=== PATIENT | female | born 1945 | race Caucasian/White ===

== ENCOUNTER 2019-04-21 14:01 | Observation (INO) ==
[2019-04-21] MEDS ORDERED: Aspirin 81 MG TAB.CHEW PO ONE (14:11)
[2019-04-21 14:28] LABS: Basophils % 0.4 %; Eosinophils # 0.1 K/mcL (0.0-0.6); Eosinophils % 1.3 %; Hematocrit 43.7 % (35.3-44.9); Hemoglobin 14.4 g/dL (11.5-15.4); Immature Granulocytes % 0.3 % (0-4); Immature Platelets 3.6 % (1.1-6.1); Lymphocytes % 28.9 %; Mean Corpuscular Hemoglobin 29.5 pg (28.0-33.3); Mean Corpuscular Volume 89.5 fL (83.0-100.0); Mean Platelet Volume 10.6 fL (9.4-12.4); Monocytes # 0.6 K/mcL (0.0-1.3); Monocytes % 7.8 %; Neutrophils # 4.3 K/mcL (1.6-8.9); Platelet Count 222 K/mcL (140-400); Red Blood Count 4.88 M/mcL (3.82-4.97); Red Cell Distribution Width 13.1 % (11.5-14.5); Segmented Neutrophils % 61.3 %
[2019-04-21 14:44] LABS: BUN/Creatinine Ratio 25 (6-26); Blood Urea Nitrogen 20 mg/dL (8-23); Calcium 10.2 mg/dL (8.6-10.3); Carbon Dioxide 26 mEq/L (23-29); Chloride 101 mEq/L (98-107); Glucose 136 mg/dL (70-105); Osmolality,Calculated 291 (280-300); Potassium 4.3 mEq/L (3.5-5.1); Sodium 138 mEq/L (136-145); eGFR For African Americans > 60 (> 60); eGFR For Non-African Americans > 60 (> 60)
[2019-04-21 14:45] LABS: Troponin I < 0.03 ng/mL (< 0.04)
[2019-04-21] MEDS ORDERED: Naloxone 0.4 MG/ML INJ IVP PRN (15:59)
[2019-04-21] MEDS ORDERED: D5% in Water 1,000 ML IVC PRN (16:03)
[2019-04-21] MEDS ORDERED: Dextrose Gel 15 GM/37.5 ML TUBE PO PRN ×2 (16:03)
[2019-04-21] MEDS ORDERED: *HR* Dextrose 50 % in Water (Syg) 50 ML SYRINGE IVP PRN (16:03)
[2019-04-21] MEDS: Insulin LISPRO 300 UNITS/3 ML VIAL SQ SCH (17:15)
[2019-04-21] MEDS ORDERED: Acetaminophen 325 MG TABLET PO PRN (17:28)
[2019-04-21] MEDS ORDERED: Acetaminophen 325 MG TABLET PO SCH (18:00)
[2019-04-21] MEDS ORDERED: Melatonin 3 MG TABLET PO SCH (21:00)
[2019-04-22 01:18] LABS: Basophils % 0.5 %; Eosinophils # 0.1 K/mcL (0.0-0.6); Eosinophils % 1.7 %; Hematocrit 42.5 % (35.3-44.9); Hemoglobin 13.7 g/dL (11.5-15.4); Immature Granulocytes % 0.2 % (0-4); Lymphocytes # 2.2 K/mcL (0.6-4.6); Lymphocytes % 33.8 %; Mean Corpuscular HGB Conc 32.2 g/dL (31.6-35.5); Mean Corpuscular Hemoglobin 29.1 pg (28.0-33.3); Mean Corpuscular Volume 90.2 fL (83.0-100.0); Mean Platelet Volume 10.6 fL (9.4-12.4); Monocytes # 0.5 K/mcL (0.0-1.3); Monocytes % 7.5 %; Neutrophils # 3.6 K/mcL (1.6-8.9); Platelet Count 223 K/mcL (140-400); Red Blood Count 4.71 M/mcL (3.82-4.97); Red Cell Distribution Width 12.9 % (11.5-14.5); Segmented Neutrophils % 56.3 %; White Blood Count 6.4 K/mcL (4.3-11.1)
[2019-04-22 01:35] LABS: BUN/Creatinine Ratio 27 (6-26); Blood Urea Nitrogen 20 mg/dL (8-23); Calcium 9.4 mg/dL (8.6-10.3); Carbon Dioxide 28 mEq/L (23-29); Chloride 101 mEq/L (98-107); Glucose 150 mg/dL (70-105); Osmolality,Calculated 287 (280-300); Sodium 136 mEq/L (136-145); eGFR For African Americans > 60 (> 60); eGFR For Non-African Americans > 60 (> 60)
[2019-04-22] MEDS ORDERED: Regadenoson 0.4 MG/5 ML SYRINGE IVP ONE (07:06)
[2019-04-22] MEDS: Insulin LISPRO 300 UNITS/3 ML VIAL SQ SCH ×2 (08:30→12:31)
[2019-04-22] MEDS ORDERED: Cholecalciferol (D-3) 1,000 UNIT (25MCG) TABLET PO SCH (09:00)
[2019-04-22] MEDS ORDERED: Magnesium Oxide 400 MG TABLET PO SCH (09:00)
[2019-04-22] MEDS ORDERED: NON-FORMULARY MEDICATION 1 EACH EACH (Fish Oil/Dha/Epa [Fish Oil 1,200 Mg Fish Oil] 1 EACH PO SCH (09:00)
[2019-04-22] MEDS ORDERED: Aspirin Enteric Coated 81 MG Tablet PO SCH (09:00)
[2019-04-22] MEDS ORDERED: NON-FORMULARY MEDICATION 1 EACH EACH (Gluc/Chon-Msm#1/C/Mang/Bos/Bor [Osteo Bi-Flex Caplet PO SCH (09:00)
[2019-04-22 12:58] VITALS: BP 152/72
== END 2019-04-22 13:54 | disposition home or self-care (01) ==
LOC: EMEROOARM 14:01 → 3BNU 14:01 → SUATTDRO 15:29 → 3BNU 15:59
PROVIDERS: ADMIT Internal Medicine; ATTEND Internal Medicine